=== PATIENT | male | born 1960 | race Caucasian/White ===

== ENCOUNTER 2020-06-07 10:44 | Emergency (ER) | payer BC | END 2020-06-07 12:13 | disposition home or self-care (01) | LOC: JVIRT 10:44 | DX: Z11.52 Encounter for screening for COVID-19 (principal) | CPT/HCPCS: C9803; G2012-GT; U0003 ==

== ENCOUNTER 2020-06-10 08:15 | Emergency (ER) | payer BC ==
[2020-06-10 08:20] VITALS: BP 136/67; PULSE 65; TEMP 98.7; BMI 25.5
[2020-06-10] MEDS ORDERED: BAMLANIVIMAB 700 MG in SODIUM CHLORIDE 180 ML IVPB ONE (08:37)
[2020-06-10 08:59] LABS: HEMATOCRIT 45.9 % (35.4-49); HEMOGLOBIN 15.7 GM/dL (11.7-16.9); MCH 32.6 pg (25.7-33.7); MCHC 34.3 g/dl (32.0-35.9); MEAN CELL VOLUME 95.1 fl (80-96); MEAN PLT VOLUME 10.1 fl (7.5-11.1); PLATELET COUNT 72 K/MM3 (134-434); RBC 4.83 M/mm3 (4.00-5.60); WHITE BLOOD COUNT 4.7 K/mm3 (4.0-10.0)
[2020-06-10 09:15] LABS: POTASSIUM 3.6 mmol/L (3.5-5.1)
[2020-06-10 09:17] LABS: BLOOD UREA NITROGEN 13.3 mg/dL (7-18); CALCIUM 8.5 mg/dL (8.5-10.1)
[2020-06-10 09:20] LABS: CREATININE 0.8 mg/dL (0.55-1.3)
== END 2020-06-10 12:57 | disposition home or self-care (01) ==
LOC: JER 08:15
DX: U07.1 COVID-19 (principal); J06.9 Acute upper respiratory infection, unspecified
CPT/HCPCS: 36415; 71046-TC-FY; 80048; 85027; 99284-25; M0239; Q0239

== ENCOUNTER 2021-12-25 01:52 | Emergency (ER) | payer BC ==
[2021-12-25 02:16] VITALS: BP 128/99; PULSE 61; RESP 20; TEMP 97.6; BMI 26.5
[2021-12-25] MEDS ORDERED: LIDOCAINE 5% TOPICAL PATCH TP ONE (04:08)
[2021-12-25] MEDS ORDERED: KETOROLAC TROMETHAMINE 15 MG/ML VIAL IM ONE (04:12)
[2021-12-25] MEDS ORDERED: KETOROLAC TROMETHAMINE 15 MG/ML VIAL ONE (04:22)
[2021-12-25] MEDS ORDERED: LIDOCAINE 5% TOPICAL PATCH ONE (04:22)
[2021-12-25 05:43] LABS: EPI CELLS >36 /uL (0-25.1); HYALINE CASTS 3 /uL (0-3.1); PH,URINE 5.5 (5.0-8.0); URINE APPEARANCE CLEAR; URINE BACTERIA 49 /uL (0-1359); URINE BILIRUBIN NEGATIVE (NEGATIVE); URINE COLOR YELLOW; URINE GLUCOSE (UA) 3+ (NEGATIVE); URINE KETONE NEGATIVE (NEGATIVE); URINE LEUK ESTERASE 1+ (NEGATIVE); URINE NITRITE NEGATIVE (NEGATIVE); URINE PROTEIN NEGATIVE (NEGATIVE); URINE RBC 13 /uL (0-23.9); URINE UROBILINOGEN 0.2 mg/dL (0.2-1.0); URINE WBC 454 /uL (0-25.8)
[2021-12-25] MEDS ORDERED: LIDOCAINE PATCH REMOVAL MC SCH (22:00)
== END 2021-12-25 06:42 | disposition home or self-care (01) ==
LOC: JER 01:52
PROC: 3E0333Z Introduction of Anti-inflammatory into Peripheral Vein, Percutaneous Approach (ICD-10-PCS; principal; 2021-12-25)
DX: N39.0 Urinary tract infection, site not specified (principal); M51.26 Other intervertebral disc displacement, lumbar region
CPT/HCPCS: 72131-TC; 74176-TC; 81003; 87086; 99285-25

== ENCOUNTER 2022-04-03 06:40 | Emergency (ER) | payer BC ==
[2022-04-03 06:48] VITALS: BP 154/83; PULSE 63; RESP 18; TEMP 98.8; BMI 26.5
[2022-04-03] MEDS ORDERED: METOCLOPRAMIDE HCL INJECTION 10 MG/2 ML VIAL IVPB ONE (07:12)
[2022-04-03] MEDS ORDERED: METOCLOPRAMIDE HCL INJECTION 10 MG/2 ML VIAL ONE (07:15)
[2022-04-03 08:05] LABS: INR 1.05 (0.83-1.09); PROTHROMBIN TIME (PATIENT) 12.1 SEC (9.7-13.0)
[2022-04-03 08:09] LABS: HEMOGLOBIN 15.3 G/dL (11.7-16.9); MEAN PLT VOLUME 10.1 fl (7.5-11.1); PLATELET COUNT 89.1 10^3/uL (134-434); RBC 4.64 10^6/uL (4.00-5.60); RDW 13.6 % (11.9-15.9); WHITE BLOOD COUNT 7.5 10^3/uL (4.0-10.8)
[2022-04-03 08:30] LABS: ALBUMIN 4.3 g/dl (3.4-5.0); CALCIUM 9.1 mg/dl (8.5-10); CREATININE 0.5 mg/dl (0.55-1.3); TOT PROT 7.3 g/dl (6.4-8.2)
[2022-04-03 09:24] LABS: PLATELET ESTIMATE DECREASED
== END 2022-04-03 09:53 | disposition home or self-care (01) ==
LOC: FER 06:40
PROC: 3E033NZ Introduction of Analgesics, Hypnotics, Sedatives into Peripheral Vein, Percutaneous Approach (ICD-10-PCS; principal; 2022-04-03)
DX: R51.9 Headache, unspecified (principal)
CPT/HCPCS: 36415; 70450-TC; 80053; 85027; 85610; 99284-25

== ENCOUNTER 2023-03-19 18:27 | Emergency (ER) | payer BC ==
[2023-03-19 18:55] VITALS: BP 138/72; PULSE 65; RESP 18; TEMP 98.3; BMI 26.6
[2023-03-19] MEDS ORDERED: ACETAMINOPHEN 325 MG TABLET (FP) PO ONE (19:29)
[2023-03-19] MEDS ORDERED: KETOROLAC TROMETHAMINE 60 MG/2 ML VIAL IM ONE (19:29)
[2023-03-19] MEDS ORDERED: KETOROLAC TROMETHAMINE 60 MG/2 ML VIAL ONE (19:32)
[2023-03-19] MEDS ORDERED: ACETAMINOPHEN 325 MG TABLET (FP) ONE (19:33)
== END 2023-03-19 20:57 | disposition home or self-care (01) ==
LOC: FER 18:27
PROC: 3E0233Z Introduction of Anti-inflammatory into Muscle, Percutaneous Approach (ICD-10-PCS; principal; 2023-03-19)
DX: R07.81 Pleurodynia (principal); M25.531 Pain in right wrist; S52.501A Unspecified fracture of the lower end of right radius, initial encounter for closed fracture; S20.212A Contusion of left front wall of thorax, initial encounter; R91.1 Solitary pulmonary nodule; W01.0XXA Fall on same level from slipping, tripping and stumbling without subsequent striking against object, initial encounter; Y92.009 Unspecified place in unspecified non-institutional (private) residence as the place of occurrence of the external cause
CPT/HCPCS: 71101-TC-RT-FY; 73110-TC-RT-FY; 99284-25

== ENCOUNTER 2024-02-12 07:32 | Emergency (ER) | payer BC ==
[2024-02-12 07:42] VITALS: BP 145/71; PULSE 81; RESP 20; TEMP 97.8; BMI 29.0
== END 2024-02-12 08:39 | disposition home or self-care (01) ==
LOC: FER 07:32
DX: M19.032 Primary osteoarthritis, left wrist (principal)
CPT/HCPCS: 73030-TC-LT-FY; 73110-TC-LT-FY; 73130-TC-LT-FY; 99284-25